=== PATIENT | male | born 1945 | race Caucasian/White ===

== ENCOUNTER 2022-03-06 15:16 | Outpatient (CLI) | payer OTHER, SELFPAY ==
[2022-03-06 17:03] LABS: Chloride* 102 mmol/L (96-114)
[2022-03-06 17:04] LABS: Potassium* 4.7 mmol/L (3.6-5.1); Sodium* 142 mmol/L (135-149)
[2022-03-06 17:06] LABS: Carbon Dioxide* 30 mmol/L (20-32); Estimated Glomerular Filt Rate 78 ml/min
[2022-03-06 17:07] LABS: Blood Urea Nitrogen* 30 mg/dL (7-30); Calcium* 9.3 mg/dL (8.4-10.6); Glucose* 85 mg/dL (60-115)
== END 2022-03-06 15:17 | disposition home or self-care (01) ==
LOC: NFLDREF 15:17
PROVIDERS: PCP Family Medicine; Visit Provider Family Medicine
DX: Z01.818 Encounter for other preprocedural examination (principal)
CPT/HCPCS: 80048

== ENCOUNTER 2022-10-11 15:25 | Outpatient (CLI) | payer OTHER, SELFPAY | END 2022-10-11 15:26 | disposition home or self-care (01) | LOC: NFLDREF 15:26 | PROVIDERS: PCP Family Medicine; Visit Provider Family Medicine | DX: R53.83 Other fatigue (principal); R73.03 Prediabetes; I10 Essential (primary) hypertension; E78.5 Hyperlipidemia, unspecified | CPT/HCPCS: 84443 ==